=== PATIENT | male | born 1980 | race Caucasian/White ===

== ENCOUNTER 2016-07-08 18:05 | Emergency (ER) | payer BC, OTHER ==
[2016-07-08 18:08] VITALS: BP 138/90; BMI 25.0
--- NOTE | 2016-07-08 18:40 | DR.N/VMALE ---
HPI - Time Seen Time seen: 18:40 - Primary Care Physician Primary Care Physician: NFD - Complaints Chief Complaint Doctors Comments: Patient admits to the symptoms for three days. He also states that he has a tooth ache/abscess Chief Complaint:: N/V/D, GENERALIZED BODY ACHES, WEAKNESS - Source History Provided: Patient - Mode of Arrival Mode of Arrival: Ambulatory - Timing Onset of Chief Complaint: 07/05/16 PMH - PMH Past Medical History: No Past Surgical History: Yes Surgical History: Appendectomy - Family History History of Family Medical Conditions: No - Social History Does patient currently use any type of tobacco product: Yes Have you used tobacco products in the last 12 months: Yes Type of Tobacco Use: Cigarettes How many years tobacco product used: 15 Does any household member use tobacco: No Alcohol Use: None Do you use any recreational Drugs:: No Lives With: Alone Lives Where: Home - infectious screening In the last 2 months have you had wt loss of >10#?: NO Have you had fever, night sweats or hemotysis?: No Have you traveled outside the country in the last 6 months?: No Isolation: Standard ROS - Review of Systems Eyes: No Symptoms Reported ENTM: No Symptoms Reported Respiratoy: No Symptoms Reported Cardiovascular: No Symptoms Reported Gastrointestinal/Abdominal: No Symptoms Reported Genitourinary: No Symptoms Reported Neurological: No Symptoms Reported Musculoskeletal: No Symptoms Reported Integumentary: No Symptoms Reported Hematologic/Lymphatic: No Symptoms Reported Endocrine: No Symptoms Reported Psychiatric: No Symptoms Reported All Other Systems: Reviewed and Negative PE - Vital Signs Vitals: Temperature 98.4 F Pulse Rate 90 Respiratory Rate 18 Blood Pressure [Left Arm] 135/74 Blood Pressure 138/90 O2 Sat by Pulse Oximetry 99 - General Limitations: No Limitations General Appearance: Alert - Head Head Exam: Normal Inspection, Atraumatic - Eyes Eye exam: Normal Appearance, PERRL, EOMI - ENT ENT Exam: Normal Exam - Neck Neck Exam: Normal Inspection, Full ROM - Chest Chest Inspection: Normal Inspection - Respiratory Respiratory Exam: Normal Lung Sounds Bilat Respiratory Exam: Bilateral Clear to Auscultation - Cardiovascular Cardiovascular Exam: Regular Rate, Normal Rhythm - Abdominal Exam Abdominal Exam: Normal Inspection Abdominal Tenderness: negative: RUQ, RLQ, LUQ, LLQ, Epigastrium, Suprapubic, Diffuse, Mild, Moderate, Severe, Other - Rectal Rectal Exam: Deferred - Exam: Male: Deferred - Extremities Extremities Exam: Normal Inspection - Back Back Exam: Normal Inspection - Neurologic Neurological Exam: Alert, Oriented X3, CN II-XII Intact - Psychiatric Psychiatric Exam: Normal Affect ROR - Labs Reviewed Result Diagrams: 07/08/16 18:56 07/08/16 18:56 Laboratory: WBC 9.0 X10^3/uL (3.6-10.0) 07/08/16 18:56 RBC 4.61 X10^6/uL (4.7-6.0) L 07/08/16 18:56 Hgb 14.2 g/dL (13.5-18.0) 07/08/16 18:56 Hct 41.2 % (42.0-54.0) L 07/08/16 18:56 MCV 89.5 fL (80.0-100.0) 07/08/16 18:56 MCH 30.8 pg (27.0-34.0) 07/08/16 18:56 MCHC 34.5 g/dL (33.0-35.0) 07/08/16 18:56 RDW 12.5 % (11.6-16.5) 07/08/16 18:56 Plt Count 301 X10^3/uL (150.0-450.0) 07/08/16 18:56 MPV 7.3 fL (7.4-11.0) L 07/08/16 18:56 Neut % 63.7 % (42.0-75.0) 07/08/16 18:56 Lymph % 22.7 % (21.0-51.0) 07/08/16 18:56 [place] % 7.6 % (0.0-13.0) 07/08/16 18:56 Eos % 4.7 % (0.9-2.9) H 07/08/16 18:56 Baso % 1.3 % (0.2-1.0) H 07/08/16 18:56 Neut # 5.7 x10^3/uL (2.2-4.8) H 07/08/16 18:56 Lymph # 2.0 X10^3/uL (1.3-2.9) 07/08/16 18:56 [place] # 0.7 x10^3/uL (0.3-0.8) 07/08/16 18:56 Eos # 0.4 x10^3/uL (0.0-0.2) H 07/08/16 18:56 Baso # 0.1 X10^3/uL (0.0-0.1) 07/08/16 18:56 Absolute Nucleated RBC 0.1 /100WBC 07/08/16 18:56 Sodium 139 mmol/L (136-145) 07/08/16 18:56 Corrected Sodium TNP 07/08/16 18:56 Potassium 3.9 mmol/L (3.5-5.1) 07/08/16 18:56 Chloride 105 mmol/L (98-107) 07/08/16 18:56 Carbon Dioxide 31.3 mmol/L (21-32) 07/08/16 18:56 BUN 6 mg/dL (7-18) L 07/08/16 18:56 Creatinine 0.84 mg/dL (0.70-1.30) 07/08/16 18:56 Est GFR (MDRD) Af Amer > 60 (>60) 07/08/16 18:56 Est GFR (MDRD) Non-Af > 60 (>60) 07/08/16 18:56 Glucose 103 mg/dL (65-99) H 07/08/16 18:56 Calcium 8.6 mg/dL (8.5-10.1) 07/08/16 18:56 Corrected Calcium TNP 07/08/16 18:56 Total Bilirubin 0.20 mg/dL (0.2-1.0) 07/08/16 18:56 AST 14 Units/L (15-37) L 07/08/16 18:56 ALT 21 Units/L (12-78) 07/08/16 18:56 Alkaline Phosphatase 70 Units/L (46-116) 07/08/16 18:56 Total Protein 8.3 g/dL (6.4-8.2) H 07/08/16 18:56 Albumin 4.3 g/dL (3.4-5.0) 07/08/16 18:56 Globulin 4.0 g/dL (2.5-4.5) 07/08/16 18:56 Albumin/Globulin Ratio 1.1 Ratio (1.1-2.1) 07/08/16 18:56 Streptococcus Screen Negative (NEGATIVE) 07/08/16 19:09 - Diagnosis Discharge Problem: Gastroenteritis - Discharge Plan Condition: Stable - Follow ups/Referrals Follow ups/Referrals: NFD,None [Primary Care Provider] - 3 days - Instructions
[2016-07-08] MEDS ORDERED: NS 1000 ML 1,000 ML ONE (18:54)
[2016-07-08] MEDS ORDERED: NS 1000 ML 1,000 ML IV SCH (19:00)
[2016-07-08 19:04] LABS: BASOPHILS # (AUTO) 0.1 X10^3/uL (0.0-0.1); BASOPHILS % (AUTO) 1.3 % (0.2-1.0); EOSINOPHILS # (AUTO) 0.4 x10^3/uL (0.0-0.2); EOSINOPHILS % (AUTO) 4.7 % (0.9-2.9); HEMATOCRIT 41.2 % (42.0-54.0); HEMOGLOBIN 14.2 g/dL (13.5-18.0); LYMPHOCYTES % (AUTO) 22.7 % (21.0-51.0); MEAN CORPUSCULAR HEMOGLOBIN 30.8 pg (27.0-34.0); MEAN CORPUSCULAR HGB CONC 34.5 g/dL (33.0-35.0); MEAN CORPUSCULAR VOLUME 89.5 fL (80.0-100.0); MEAN PLATELET VOLUME 7.3 fL (7.4-11.0); MONOCYTES # (AUTO) 0.7 x10^3/uL (0.3-0.8); MONOCYTES % (AUTO) 7.6 % (0.0-13.0); NEUTROPHILS # (AUTO) 5.7 x10^3/uL (2.2-4.8); NEUTROPHILS % (AUTO) 63.7 % (42.0-75.0); PLATELET COUNT 301 X10^3/uL (150.0-450.0); RED BLOOD COUNT 4.61 X10^6/uL (4.7-6.0); RED CELL DISTRIBUTION WIDTH 12.5 % (11.6-16.5)
[2016-07-08 19:15] LABS: ALANINE AMINOTRANSFERASE 21 Units/L (12-78); ALBUMIN 4.3 g/dL (3.4-5.0); ALKALINE PHOSPHATASE 70 Units/L (46-116); ASPARTATE AMINO TRANSFERASE 14 Units/L (15-37); BLOOD UREA NITROGEN 6 mg/dL (7-18); CALCIUM 8.6 mg/dL (8.5-10.1); CARBON DIOXIDE 31.3 mmol/L (21-32); CHLORIDE 105 mmol/L (98-107); CREATININE 0.84 mg/dL (0.70-1.30); GLUCOSE 103 mg/dL (65-99); SODIUM 139 mmol/L (136-145); TOTAL PROTEIN 8.3 g/dL (6.4-8.2); eGFR BLACK RACES > 60 (>60); eGFR NON BLACK RACES > 60 (>60)
== END 2016-07-08 20:10 | disposition home or self-care (01) ==
LOC: ER 18:13
DX: K52.89 Other specified noninfective gastroenteritis and colitis (principal); B95.61 Methicillin susceptible Staphylococcus aureus infection as the cause of diseases classified elsewhere; B95.0 Streptococcus, group A, as the cause of diseases classified elsewhere
CPT/HCPCS: 36415; 80053; 85025; 87070; 87077; 87186; 87880; 96365; 99283; A4222